=== PATIENT | male | born 1995 | race Two or more races ===

== ENCOUNTER 2023-05-04 06:15 | Observation (INO) | payer BC ==
[~2023-05-04] VITALS: Ht 177.8 cm; Wt 81.0 kg
[2023-05-04] MEDS ORDERED: normal saline 1000ML IV soln IVB ONE (07:30)
[2023-05-04 09:22] LABS: BASOPHILS % (AUTO) 0.3 % (0-1); EOSINOPHILS % (AUTO) 0.2 % (0-6); HEMATOCRIT 38.3 % (42.0-52.0); HEMOGLOBIN 12.8 g/dl (14.0-17.9); LYMPHOCYTES # (AUTO) 1.4 X10'3 (1.1-4.8); LYMPHOCYTES % (AUTO) 16.4 % (21-51); MEAN CORPUSCULAR HEMOGLOBIN 29.3 PG (27.0-31.0); MEAN CORPUSCULAR HGB CONC 33.3 g/dL (33.0-36.5); MEAN CORPUSCULAR VOLUME 88.1 FL (78-98); MEAN PLATELET VOLUME 7.3 FL (7.4-10.4); MONOCYTES # (AUTO) 0.6 X10'3 (0-0.9); NEUTROPHILS # (AUTO) 6.6 X10'3 (1.8-7.7); NEUTROPHILS % (AUTO) 76.1 % (42-75); PLATELET COUNT 319 X10'3 (140-440); RED BLOOD COUNT 4.35 X10'6 (4.70-6.10); RED CELL DISTRIBUTION WIDTH 14.3 % (11.5-14.5); WHITE BLOOD COUNT 8.7 X10'3 (4.5-11.0)
[2023-05-04 09:40] LABS: ALANINE AMINOTRANSFERASE 49 U/L (12-78); ALBUMIN 3.8 G/DL (3.4-5.0); ALBUMIN/GLOBULIN RATIO 1.4 (1.1-1.5); ALKALINE PHOSPHATASE 57 IU/L (46-116); ANION GAP 10 (8-16); ASPARTATE AMINO TRANSFERASE 52 U/L (10-37); BILIRUBIN,TOTAL 0.6 MG/DL (0.1-1.0); BLOOD UREA NITROGEN 15 MG/DL (7-18); BUN/CREATININE RATIO 12.8 (10.0-20.0); CALCIUM 8.3 MG/DL (8.5-10.1); CHLORIDE 106 MMOL/L (99-107); CREATININE 1.17 MG/DL (0.60-1.10); GLUCOSE 94 MG/DL (70-104); POTASSIUM 4.3 MMOL/L (3.5-5.1); SODIUM 142 MMOL/L (135-145); TOTAL CARBON DIOXIDE 26.3 MMOL/L (24-32); TOTAL PROTEIN 6.6 G/DL (6.4-8.2); eGFR 74 ML/MIN
--- NOTE | 2023-05-04 09:49 | NUR ---
critical lab of troponin 192. Dr. Rodriguez notified.
[2023-05-04] MEDS ORDERED: NO HOME MEDS (12:47)
[2023-05-04 13:57] LABS: CLARITY,URINE CLEAR (Clear); COLOR,URINE STRAW (Yellow); GLUCOSE, URINE NEGATIVE (Neg); KETONES,URINE 15 mg/dl (Neg); LEUKOCYTE ESTERASE ,URINE NEGATIVE (Neg); NITRITES, URINE NEGATIVE (Neg); OCCULT BLOOD,URINE NEGATIVE (Neg); PROTEIN,URINE NEGATIVE (Neg); UROBILINOGEN,URINE 0.2 E.U/dL (0.2-1.0)
[2023-05-04 13:59] LABS: URINE AMPHETAMINE SCREEN NEGATIVE (Neg); URINE BARBITUATE SCREEN NEGATIVE (Neg); URINE BENZODIAZEPINES SCREEN NEGATIVE (Neg); URINE CANNABINOID SCREEN NEGATIVE (Neg); URINE COCAINE SCREEN NEGATIVE (Neg); URINE METHADONE SCREEN NEGATIVE (Neg); URINE OPIATE SCREEN POSITIVE (Neg); URINE PHENCYCLIDINE SCREEN NEGATIVE (Neg)
[2023-05-04 14:03] LABS: UA COLLECTION TYPE URINAL
[2023-05-04] MEDS ORDERED: ondansetron/PF 4mg/2ml inj IV PRN (14:10)
[2023-05-04] MEDS ORDERED: magnesium 2GM in 50ml NS 50 ML IV PRN (14:10)
[2023-05-04] MEDS ORDERED: potassium Cl 20 mEq SR tablet PO PRN ×2 (14:10)
[2023-05-04] MEDS ORDERED: acetaminophen 325mg tablet PO PRN ×2 (14:10)
[2023-05-04] MEDS ORDERED: magnesium hydroxide 30ml (MOM) UD suspension PO PRN (14:10)
[2023-05-04] MEDS ORDERED: mag hydrox/Alum hydrox/simeth 30ml oral suspension PO PRN (14:10)
[2023-05-04] MEDS ORDERED: potassium Cl 40MEQ/1/2NS 520ml 520 ML IV PRN (14:10)
[2023-05-04] MEDS ORDERED: PERFLUTREN PROTEIN-A MICROSPHR (Optison) 0.22 MG/ML 3ML VIAL IV ONE (14:10)
[2023-05-04] MEDS ORDERED: magnesium Cl slow-release 64mg tablet PO PRN (14:10)
[2023-05-04] MEDS ORDERED: diphenhydrAMINE 25mg capsule PO PRN (14:10)
[2023-05-04] MEDS ORDERED: bisacodyl 10mg suppository rectal RC PRN (14:10)
[2023-05-04] MEDS ORDERED: magnesium 4gm in 100ml NS 100 ML IV PRN (14:10)
[2023-05-04] MEDS ORDERED: acetaminophen 650mg rectal suppository RC PRN (14:10)
[2023-05-04 14:25] LABS: HEMOGLOBIN A1C 5.1 % (4.5-6.2)
[2023-05-04 14:34] LABS: CHOL/HDL RATIO 3.6 (0.00-4.99); CHOLESTEROL 162 MG/DL (0-200); HDL CHOLESTEROL 45 MG/DL (35-60); LDL CHOLESTEROL 93 MG/DL (50-100); TRIGLYCERIDES 51 MG/DL (20-135)
[2023-05-04] MEDS: normal saline 1000ml 1,000 ML IV SCH (15:06)
[2023-05-04 18:00] VITALS: BP 116/62
--- NOTE | 2023-05-04 18:39 | NUR ---
Patient in room PCU 3024. I have received report from Jacek PINTO and had the opportunity to ask questions and assume patient care.
[2023-05-04] MEDS: K and/or MAG REPLACEMENT MC SCH (19:41)
[2023-05-04] MEDS: docusate sod 100mg capsule PO SCH (19:51)
[2023-05-04] MEDS: heparin, porcine 5000 units/ml vial SQ SCH (19:51)
[2023-05-04 20:00] VITALS: BP_SYST 116; BP_SYST 119; BP_SYST 126; BP_DIAS 62; BP_DIAS 63; BP_DIAS 72
[2023-05-04] MEDS ORDERED: iohexol 350MG/ML 100ml bottle IV ONE (21:29)
[2023-05-04 22:00] VITALS: BP 106/69
[2023-05-04 22:07] VITALS: BP_SYST 116; BP_SYST 119; BP_SYST 126; BP_DIAS 62; BP_DIAS 63; BP_DIAS 72
--- NOTE | 2023-05-04 23:04 | NUR ---
EEG completed at bedside @2100. Once completed took patient down to CT in wheelchair, stayed with patient for CT scan, tolerated contrast and procedure with no issues. Patient brought back to room and resting in bed, call light and fluids within reach, will continue to monitor.
[2023-05-05 02:00] VITALS: BP 115/61
[2023-05-05] MEDS: normal saline 1000ml 1,000 ML IV SCH ×2 (02:40→10:10)
--- NOTE | 2023-05-05 06:28 | NUR ---
Problems reprioritized. Patient report given, questions answered & plan of care reviewed with Jacek PINTO.
[2023-05-05 06:56] LABS: BASOPHILS % (AUTO) 0.4 % (0-1); EOSINOPHILS # (AUTO) 0.1 X10'3 (0-0.9); HEMOGLOBIN 12.7 g/dl (14.0-17.9); LYMPHOCYTES # (AUTO) 3.3 X10'3 (1.1-4.8); LYMPHOCYTES % (AUTO) 55.9 % (21-51); MEAN CORPUSCULAR HEMOGLOBIN 29.8 PG (27.0-31.0); MEAN CORPUSCULAR HGB CONC 33.5 g/dL (33.0-36.5); MEAN PLATELET VOLUME 7.5 FL (7.4-10.4); MONOCYTES # (AUTO) 0.6 X10'3 (0-0.9); MONOCYTES % (AUTO) 9.8 % (2-12); NEUTROPHILS # (AUTO) 1.9 X10'3 (1.8-7.7); NEUTROPHILS % (AUTO) 31.9 % (42-75); PLATELET COUNT 325 X10'3 (140-440); RED BLOOD COUNT 4.27 X10'6 (4.70-6.10); RED CELL DISTRIBUTION WIDTH 14.5 % (11.5-14.5); WHITE BLOOD COUNT 5.9 X10'3 (4.5-11.0)
[2023-05-05 07:00] VITALS: BP 101/62
[2023-05-05 07:11] LABS: ALANINE AMINOTRANSFERASE 44 U/L (12-78); ALBUMIN 3.4 G/DL (3.4-5.0); ALBUMIN/GLOBULIN RATIO 1.2 (1.1-1.5); ALKALINE PHOSPHATASE 54 IU/L (46-116); ANION GAP 7 (8-16); ASPARTATE AMINO TRANSFERASE 40 U/L (10-37); BILIRUBIN,TOTAL 0.8 MG/DL (0.1-1.0); BLOOD UREA NITROGEN 11 MG/DL (7-18); BUN/CREATININE RATIO 10.1 (10.0-20.0); CALCIUM 8.5 MG/DL (8.5-10.1); CHLORIDE 107 MMOL/L (99-107); CREATININE 1.09 MG/DL (0.60-1.10); GLUCOSE 87 MG/DL (70-104); MAGNESIUM 2.2 MG/DL (1.5-2.4); POTASSIUM 4.1 MMOL/L (3.5-5.1); SODIUM 140 MMOL/L (135-145); TOTAL CARBON DIOXIDE 26.2 MMOL/L (24-32); TOTAL PROTEIN 6.2 G/DL (6.4-8.2); eGFR 81 ML/MIN
[2023-05-05] MEDS: heparin, porcine 5000 units/ml vial SQ SCH (08:00)
[2023-05-05] MEDS: K and/or MAG REPLACEMENT MC SCH (08:00)
[2023-05-05] MEDS: docusate sod 100mg capsule PO SCH (08:07)
[2023-05-05 11:00] VITALS: BP 109/64
== END 2023-05-05 16:33 | disposition home or self-care (01) ==
LOC: ER 06:16 → ED HOLD 14:11 → INTOOBSV 14:11 → PCU 3S 15:57
PROVIDERS: ADMIT Family Medicine; ATTEND Family Medicine
DX: R55 Syncope and collapse (principal); M54.50 Low back pain, unspecified; X58.XXXA Exposure to other specified factors, initial encounter; Y93.67 Activity, basketball; Y92.310 Basketball court as the place of occurrence of the external cause; Y99.8 Other external cause status
CPT/HCPCS: 36415; 70450; 70496; 70498; 71045; 72146; 72148; 80053; 80061; 80305; 81003; 83036; 83735; 83880; 84100; 84443; 84484; 85025; 85379; 93306; 95816; 96360; 96361; 96372; 97116; 97161; 97530; 99285; A6258; G0378; J1644; J3490; J7030; Q9967